=== PATIENT | male | born 1970 | race African-American/Black ===

== ENCOUNTER → 2021-09-17 | Outpatient (CLI) | payer MEDICARE, MEDICAID ==
[2015-04-17 13:58] VITALS: BP 135/78
--- NOTE | 2021-09-17 15:37 | KCIC ---
EXAM: XR ABDOMEN 2V 09/17/2021 2:18 PM CLINICAL INDICATION: Slow transit constipation abdominal pain for 3 days COMPARISON: None TECHNIQUE: AP supine and upright view the abdomen FINDINGS: Large volume stool in the colon. No evidence of small bowel obstruction. The stomach is di stended with debris. Lung bases are clear. No acute osseous abnormality. Mild degenerative joint dise ase of the hips. IMPRESSION: Large volume of stool. Electronically signed by: Stephany Angulo MD (09/17/2021 3:35 PM) [id number]
== END ==
LOC: KCIC 14:12
PROVIDERS: ATTEND Nurse Practitioner
DX: K59.01 Slow transit constipation (principal); M16.0 Bilateral primary osteoarthritis of hip
CPT/HCPCS: 74021